=== PATIENT | male | born 2000 | race Caucasian/White ===

== ENCOUNTER 2023-10-19 18:49 | Emergency (ER) | payer OTHER ==
[2023-10-19] MEDS ORDERED: LIDOCAINE 1% MPF 5 ML VIAL ONE (19:51)
--- NOTE | 2023-10-19 20:02 | ER ---
Nurse's Notes [facility] Name: Rajendra Mijares Age: 23 yrs Sex: Male : 2000 Arrival Date: 10/19/2023 Time: 18:49 Bed 13 Private MD: Diagnosis: Puncture wound with foreign body of unspecified finger without damage to nail, initial encounter Presentation: 10/18 18:58 Chief complaint: Patient states: I GOT A FISH HOOK IN MY FINGER. Coronavirus screen: ha1 Vaccine status: Patient reports being unvaccinated. Ebola Screen: No symptoms or risks identified at this time. Initial Sepsis Screen: Does the patient meet any 2 criteria? No. Patient's initial sepsis screen is negative. Does the patient have a suspected source of infection? No. Patient's initial sepsis screen is negative. Risk Assessment: Do you want to hurt yourself or someone else? Patient reports no desire to harm self or others. 18:58 Method Of Arrival: Ambulatory ha1 18:58 Acuity: DAMARIS 4 ha1 Triage Assessment: 18:59 General: Appears ill, Behavior is calm, cooperative. Pain: Complains of pain in palmar ha1 aspect of distal phalanx of left index finger Pain does not radiate. Pain currently is 8 out of 10 on a pain scale. Quality of pain is described as aching. Neuro: Level of Consciousness is awake, alert, obeys commands, Oriented to person, place, time, situation. Cardiovascular: Capillary refill < 3 seconds Patient's skin is warm and dry. Respiratory: Airway is patent Respiratory effort is even, unlabored, Respiratory pattern is regular, symmetrical. Historical: - Allergies: 18:59 No Known Allergies; ha1 - PMHx: 18:59 None; ha1 - Immunization history:: Adult Immunizations not up to date. - Infectious Disease History:: Denies. - Social history:: Smoking status: Patient reports the use of cigarette tobacco products, smokes one pack cigarettes per day. Screenin:14 [facility] ED Fall Risk Assessment (Adult) History of falling in the last 3 months, jb4 including since admission No falls in past 3 months (0 pts) Confusion or Disorientation No (0 pts) Intoxicated or Sedated No (0 pts) Impaired Gait No (0 pts) Mobility Assist Device Used No (0 pt) Altered Elimination No (0 pt) Score/Fall Risk Level 0 - 2 = Low Risk Oriented to surroundings, Maintained a safe environment. Abuse screen: Denies threats or abuse. Nutritional screening: No deficits noted. Tuberculosis screening: No symptoms or risk factors identified. Assessment: 19:14 General: Appears in no apparent distress. comfortable, Behavior is calm, cooperative, jb4 appropriate for age. Pain: Complains of pain in palmar aspect of distal phalanx of left index finger Pain does not radiate. Pain currently is 6 out of 10 on a pain scale. Neuro: Level of Consciousness is awake, alert, obeys commands, Oriented to person, place, time, situation. Cardiovascular: Patient's skin is warm and dry. Respiratory: Airway is patent Respiratory effort is even, unlabored, Respiratory pattern is regular, symmetrical. GI: No signs and/or symptoms were reported involving the gastrointestinal system. : No signs and/or symptoms were reported regarding the genitourinary system. EENT: No signs and/or symptoms were reported regarding the EENT system. Derm: Skin is intact, Skin is pink, warm \T\ dry. 20:05 Reassessment: Patient appears in no apparent distress at this time. Patient and/or jb4 family updated on plan of care and expected duration. Pain level reassessed. Patient is alert, oriented x 3, equal unlabored respirations, skin warm/dry/pink. Vital Signs: 18:58 BP 158 / 84; Pulse 100; Resp 17 S; Temp 98.2; Pulse Ox 100% on R/A; Weight 117.93 kg; ha1 ED Course: 18:53 Patient arrived in ED. mr 18:59 Triage completed. ha1 19:14 Patient has correct armband on for positive identification. Placed in gown. Bed in low jb4 position. Call light in reach. Side rails up X 1. 20:00 Yesi Solis MD is Attending Physician. sd2 20:06 Patient did not have IV access during this emergency room visit. jb4 20:06 Assisted provider with: Removal of foreign body from left index finger. Performed by jb4 Dr. Solis. 20:25 Provided Education on: Discharge instructions.. jb4 Administered Medications: 20:06 CANCELLED (Other Intervention Used): tetanus-diphtheria toxoidadult 0.5 ml IM once; jb4 Provide Vaccine Information Statement (VIS). 20:23 Drug: Boostrix Tdap IM 0.5 ml IM once; as a single dose Route: IM; Site: right deltoid; jb4 20:25 Follow up: Response: Medication administered at discharge. jb4 Medication: 20:25 VIS not applicable for this client. jb4 Outcome: 20:01 Discharge ordered by . sd2 20:25 Discharged to home ambulatory, jb4 20:25 Condition: stable 20:25 Discharge instructions given to patient, family, Instructed on discharge instructions, follow up and referral plans. wound care, Demonstrated understanding of instructions, follow-up care, wound care, 20:26 Patient left the ED. jb4 Signatures: Kiara Khalil, Bob Reg mr Ryan Toure RN RN jb4 Yesi Solis MD MD sd2 Therese Jamison RN RN ha1 Corrections: (The following items were deleted from the chart) 20:07 19:14 No provider procedures requiring assistance completed. jb4 jb4
--- NOTE | 2023-10-19 20:02 | EDPHYS ---
Physician Documentation [facility] Name: Rajendra Mijares Age: 23 yrs Sex: Male : 2000 Arrival Date: 10/19/2023 Time: 18:49 Bed 13 Private MD: ED Physician Yesi Solis HPI: 10/18 20:14 This 23 yrs old Male presents to ER via Ambulatory with complaints of Fish hook in sd2 finger. 20:14 23-year-old male presents with chief complaint of fishhook in left index finger. This sd2 happened just prior to arrival. The patient has not performed any wound care or done anything to it since then. He endorses associated pain.. Historical: - Allergies: 18:59 No Known Allergies; ha1 - PMHx: 18:59 None; ha1 - Immunization history:: Adult Immunizations not up to date. - Infectious Disease History:: Denies. - Social history:: Smoking status: Patient reports the use of cigarette tobacco products, smokes one pack cigarettes per day. ROS: 20:14 Constitutional: Negative for fever, chills, and weight loss, MS/Extremity: Negative for sd2 injury and deformity, Skin: Positive for injury, Negative for rash, and discoloration, Neuro: Negative for headache, numbness and tingling. Exam: 20:14 Constitutional: This is a well developed, well nourished patient who is awake, alert, sd2 and in no acute distress. Skin: Warm, dry with normal turgor. Normal color. 3 pronged fish hook noted to have 1 prong in the pad of the left index finger with good capillary refill, FROM intact, no active bleeding MS/ Extremity: Pulses equal, no cyanosis. Neurovascular intact. Full, normal range of motion. Neuro: Awake and alert, GCS 15, oriented to person, place, time, and situation. Vital Signs: 18:58 BP 158 / 84; Pulse 100; Resp 17 S; Temp 98.2; Pulse Ox 100% on R/A; Weight 117.93 kg; ha1 Procedures: 20:14 Nerve block: (digital) of palmar aspect of distal phalanx of left index finger sd2 Medication: Lidocaine 1% without epinephrine Amount: 5 mls were injected, Effect: the patient has resolution of the pain, Set up for procedure. Performed by Yesi Solis MD Patient tolerated well. Performed Foreign body removal. Following digital block, fish hook pushed through the skin and then cut off at the distal tip and pulled back out the proximal end. No complications and pt tolerated well. No significant bleeding. . MDM: 19:10 Patient medically screened. sd2 20:17 Data reviewed: vital signs, nurses notes. I considered the following discharge sd2 prescriptions or medication management in the emergency department Medications were administered in the Emergency Department. See MAR. Counseling: I had a detailed discussion with the patient and/or guardian regarding the historical points, exam findings, and any diagnostic results supporting the discharge/admit diagnosis, the need for outpatient follow up, to return to the emergency department if symptoms worsen or persist or if there are any questions or concerns that arise at home. ED course: Pt tolerated FB removal well. Advised of wound care. Tetanus updated. Pt comfortable with plan for discharge and outpatient follow up and verbalizes understanding of strict return precautions.. Administered Medications: 20:06 CANCELLED (Other Intervention Used): tetanus-diphtheria toxoidadult 0.5 ml IM once; [facility] Provide Vaccine Information Statement (VIS). 20:23 Drug: Boostrix Tdap IM 0.5 ml IM once; as a single dose Route: IM; Site: right deltoid; [facility] 20:25 Follow up: Response: Medication administered at discharge. 4 Disposition Summary: 10/19/23 20:01 Discharge Ordered Problem: new sd2 Symptoms: are resolved sd2 Condition: Stable sd2 Diagnosis - Puncture wound with foreign body of unspecified finger without damage to nail, sd2 initial encounter Followup: sd2 - With: Private Physician - When: 2 - 3 days - Reason: Wound Recheck, Recheck today's complaints, Continuance of care, Re-evaluation by your physician Discharge Instructions: - Discharge Summary Sheet sd2 - Wound Care, Adult sd2 - Hand or Foot Foreign Body, Adult sd2 Forms: - Medication Reconciliation Form sd2 - Antibiotic Education sd2 - Prescription Opioid Use sd2 - Patient Portal Instructions sd2 - Leadership Thank You Letter sd2 Signatures: Ryan Toure RN RN jb4 Yesi Solis MD MD sd2 Therese Jamison RN RN ha1 Corrections: (The following items were deleted from the chart) 20:06 20:02 Tetanus-Diphtheria Toxoid IM Adult 0.5 ml IM once; Provide Vaccine Information jb4 Statement (VIS). ordered. sd2
[2023-10-19] MEDS ORDERED: TDAP (DIPHTH,PERTUSS(ACELL),TET VAC) 0.5 ML VIAL IMVAC ONE (20:16)
[2023-10-19 20:54] VITALS: BP 158/84; TEMP 98.2; O2SAT 100
== END 2023-10-19 20:26 | disposition home or self-care (01) ==
LOC: ER 18:49
DX: S61.241A Puncture wound with foreign body of left index finger without damage to nail, initial encounter (principal); F17.210 Nicotine dependence, cigarettes, uncomplicated
CPT/HCPCS: 64450; 96372; 99284; J2001